=== PATIENT | male | born 1995 ===

== ENCOUNTER 2023-06-16 09:51 | Outpatient (CLI) | payer OTHER, SELFPAY | END 2023-06-16 09:52 | disposition home or self-care (01) | LOC: RT 09:55 | PROVIDERS: PCP Nurse Practitioner Family; Visit Provider Nurse Practitioner Family | DX: J39.9 Disease of upper respiratory tract, unspecified (principal) | CPT/HCPCS: 94010 ==

== ENCOUNTER 2023-09-22 11:10 | Outpatient (CLI) | payer OTHER, SELFPAY | END 2023-09-22 11:11 | disposition home or self-care (01) | LOC: RT 11:11 | PROVIDERS: PCP Nurse Practitioner Family; Visit Provider Nurse Practitioner Family | DX: J39.8 Other specified diseases of upper respiratory tract (principal) | CPT/HCPCS: 94010 ==